=== PATIENT | female | born 1975 | race Two or more races ===

== ENCOUNTER 2016-09-18 07:18 | Day surgery (SDC) | payer OTHER ==
[2016-09-17 17:47] VITALS: BMI 37.0
[2016-09-18] MEDS ORDERED: MIDAZOLAM HCL 2 MG/2 ML SINGLE DOSE VIAL ONE (09:04)
[2016-09-18] MEDS ORDERED: ROCURONIUM BROMIDE 50 MG/5 ML VIAL ONE (09:04)
[2016-09-18] MEDS ORDERED: PROPOFOL 20 ML ONE (09:04)
--- NOTE | 2016-09-18 09:45 | HP ---
History & Physical Update - History History: No Change - Physical Physical: No Change - Assessment Assessment: No Change - Plan Plan: No Change
[2016-09-18] MEDS ORDERED: SUCCINYLCHOLINE CHLORIDE 200 MG/10 ML VIAL ONE (09:48)
[2016-09-18] MEDS ORDERED: ONDANSETRON 4 MG/2 ML VIAL ONE (09:58)
[2016-09-18] MEDS ORDERED: DEXAMETHASONE SOD PHOSPHATE 4 MG/1 ML VIAL ONE (09:58)
[2016-09-18] MEDS ORDERED: ACETAMINOPHEN INJECTION 100 ML IVPB ONE (11:38)
[2016-09-18] MEDS ORDERED: LIDOCAINE HCL 2% 100 MG/5 ML DISP.SYRIN ONE (13:05)
[2016-09-18] MEDS ORDERED: ONDANSETRON 4 MG/2 ML VIAL IVPUSH PRN ×2 (13:13→13:27)
[2016-09-18] MEDS ORDERED: PROMETHAZINE HCL 25 MG/1 ML VIAL IVPUSH PRN ×2 (13:13→13:27)
[2016-09-18] MEDS ORDERED: OXYCODONE/APAP 5/325MG COMBO TABLET PO PRN (13:15)
[2016-09-18] MEDS ORDERED: LACTATED RINGERS SOLUTION 1,000 ML IV SCH ×2 (13:15→13:27)
--- NOTE | 2016-09-18 13:21 | OP ---
Operative Note - Note: Operative Date: 09/18/16 Pre-Operative Diagnosis: Nodular tyhyroid goiter, right lobr. 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 Operation: Right thyroid lobectomy, Use of Nervana nerve monitor. ( Completion thyroidectomy). Findings: Large nodules in right lobe of thyroid, inferior pole. Post-Operative Diagnosis: Same as Pre-op Surgeon: Elmira Scruggs Anesthesiologist/BEND SORTER: Jordi Vargas Anesthesia: General Specimens Removed: Right lobe of thyroid. Estimated Blood Loss (mls): 25 Operative Report Dictated: Yes
[2016-09-18] MEDS ORDERED: ACETAMINOPHEN 325 MG TABLET (FP) PO PRN (14:06)
[2016-09-18] MEDS ORDERED: oxyCODONE HCL 5 MG TABLET PO PRN (14:06)
[2016-09-18] MEDS ORDERED: PROMETHAZINE HCL 25 MG/1 ML VIAL ONE (14:50)
[2016-09-19 06:01] VITALS: PULSE 78
[2016-09-19] MEDS ORDERED: LEVOTHYROXINE NA 75 MCG TABLET (FP) PO SCH (07:00)
[2016-09-19 10:34] VITALS: BP 141/78; TEMP 98.2
--- NOTE | 2016-09-19 11:55 | PN ---
Progress Note, Physician - Current Medication List Current Medications: Active Medications Acetaminophen (Tylenol -) 325 mg PO Q6H PRN PRN Reason: PAIN Last Admin: 09/18/16 18:17 Dose: 325 mg Lactated Ringer's (Lactated Ringers Solution) 1,000 mls @ 125 mls/hr IV ASDIR [facility] Last Admin: 09/18/16 15:45 Dose: 0 mls Levothyroxine Sodium (Synthroid -) 75 mcg PO DAILY@0700 [facility] Last Admin: 09/19/16 06:01 Dose: 75 mcg Oxycodone HCl (Roxicodone -) 5 mg PO Q6H PRN PRN Reason: PAIN Last Admin: 09/18/16 18:18 Dose: 5 mg - Objective Vital Signs: Vital Signs Temperature 98.2 F 09/19/16 08:10 Pulse Rate 78 09/19/16 08:10 Respiratory Rate 18 09/19/16 08:10 Blood Pressure 141/78 09/19/16 08:10 O2 Sat by Pulse Oximetry (%) 97 09/18/16 18:35 Assessment/Plan Patient has no complaints. Voice is normal. Drainage 30 ml. Will remove drain . Discharge home, follow up in the office.
--- NOTE | 2016-09-21 08:56 | OP ---
DATE OF OPERATION: 09/18/2016 PREOPERATIVE DIAGNOSIS: Nodular thyroid goiter in the right lobe of the thyroid with a history of carcinoma of the left lobe of the thyroid. POSTOPERATIVE DIAGNOSIS: Nodular thyroid goiter in the right lobe of the thyroid with a history of carcinoma of the left lobe of the thyroid. OPERATIVE PROCEDURE: Right thyroid lobectomy and use of Nirvana neuromonitoring device. SURGEON: Dillon Scruggs M.D. FOOD AND BEVERAGE CHECKER: Medical student ANESTHESIA: General anesthesia with the use of the Nirvana neuromonitoring device. ANESTHESIOLOGIST: Jordi Vargas M.D. OPERATIVE DESCRIPTION: This 41-year-old woman was brought in for a right thyroid lobectomy. She has an enlarged nodule in the right lobe of the thyroid. 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 Patient was followed subsequent to that. She has now developed a large nodule and it was brought in for completion thyroidectomy (right thyroid lobectomy). A Nirvana neuromonitoring device was used. The neck was positioned in extension, painted and draped. Timeout was called. An incision was made over the previous scar one fingerbreadth above the clavicle from one sternocleidomastoid to the other. It was deepened through skin and subcutaneous tissue and the platysma muscle. Superior and inferior skin flaps were then placed between the platysma and the deep cervical fascia superiorly up to the hyoid bone, inferiorly anterior to and below the clavicle on either side. Bleeding vessels were either cauterized or clipped, or cauterized with LigaSure or electrocautery. Strap muscles were then divided in the midline from the hyoid bone to the suprasternal notch. The strap muscles on the right side were then distracted to expose the right lobe of the thyroid gland, which was very large and had a large nodule on the inferior pole of the thyroid gland which was wrapped around the trachea, going behind the trachea into the prevertebral space. This was brought into the wound and exposed. Superior thyroid vessels were divided as close to the gland as possible between the hemoclips, Ligasure and the electrocautery. The inferior thyroid vessels were also divided as close to the gland as possible. Both parathyroid glands were identified and they were close to the Kaur ligament and the recurrent laryngeal nerve. This was carefully from the thyroid, sparing its blood supply. The right recurrent laryngeal nerve was identified and preserved with its function intact as demonstrated by stimulating the recurrent laryngeal nerve with the Nirvana neuromonitoring device. The Kaur ligament was then divided and the gland was mobilized medially. The isthmus of the thyroid gland was also excised and from the trachea and the thyroid cartilages. Both parathyroid glands were preserved intact. However, as they were close to each other and near the Kaur ligament, the procedure proceeded with careful deliberation. Hemostasis was satisfactory at the completion of procedure. A no. 8 drain was left in the wound and brought out through a stab wound on the right side of the neck. The pretracheal fascial fat was inspected. There were no enlarged lymph nodes in the central compartment or in the jugular chain, which was exposed with no enlarged lymph nodes. The wound was irrigated and hemostasis was satisfactory. Estimated blood loss was 25 mL. Strap muscles were approximated with interrupted [id number] 3-0 Vicryl sutures. The platysma was approximated with buried interrupted 3-0 Vicryl sutures. The skin was approximated with continuous 4 'O' Monocryl suture in a running subcuticular fashion. A small dressing was placed around the drain. The patient was extubated and sent to the recovery room in satisfactory and stable condition. Joslyn [id number] MTDD
--- NOTE | 2016-09-21 14:43 | PATH ---
Surgical Pathology Report Patient Name: BELKIS MARTIN [facility]. Rec. #: [id number] /Age/Gender: 1975 (Age: 41) / F Account: [id number] Location: AMBULATORY SURG Taken: 09/18/2016 Received: 09/18/2016 Reported: 09/21/2016 Physicians: Dillon Scruggs M.D. Specimen(s) Received RIGHT LOBE OF THYROID Clinical History Hx of papillary carcinoma (left lobe), now with thyroid nodule/mass in the right lobe Final Diagnosis THYROID GLAND, RIGHT LOBE, COMPLETION THYROIDECTOMY: PAPILLARY THYROID CARCINOMA, FOUR FOCI, LIMITED TO THYROID, CLASSICAL AND FOLLICULAR TYPES. TUMOR FOCI SIZE: 0.5 CM, 0.4 CM, 0.4 CM, AND 0.3 CM. SURGICAL RESECTION MARGINS: NEGATIVE FOR CARCINOMA: EXTRATHYROIDAL EXTENSIONS: NOT DEFINITIVELY IDENTIFIED. LYMPHOVASCULAR INVASION: NOT IDENTIFIED. PERINEURAL INVASION: NOT IDENTIFIED. SURROUNDING THYROID TISSUE: MULTINODULAR HYPERPLASIA. PATHOLOGIC STAGING: PRIMARY TUMOR: mpT1a LYMPH NODES: pNX Note: Prior history of papillary thyroid carcinoma (0.3 cm) in the left lobe () is noted. Considering the the multifocal nature of the tumor pathologic staging is mpT1a. Comments Thyroid carcinoma: Surgical Pathology Cancer Case Summary (Checklist) Based on AJCC/UICC TNM, 7th edition Procedure __x_ Completion thyroidectomy _x_ Right Specimen Integrity _x_ Intact Specimen Size Right lobe: 6.3 x4.5 x 1.5 cm Tumor Focality _x_ Multifocal (specify): _x_ Bilateral (also refer to prior specimen ). Dominant Tumor Tumor Laterality _x_ Right lobe Tumor Size Greatest dimension: 0.5 cm Histologic Type _x_ Papillary carcinoma Variant, specify: _x_ Classical (usual) Architecture: _x_ Classical (papillary) Cytomorphology: _x_ Classical Histologic Grade _x_ G1: Well differentiated Margins _x_ Margins uninvolved by carcinoma Tumor Capsule _x_ Partially encapsulated Tumor Capsular Invasion _x_ Present Lymph-Vascular Invasion _x_ Not identified Extrathyroidal Extension _x_ Not definitively identified Second Tumor Tumor Laterality _x_ Right lobe Tumor Size Greatest dimension: 0.4 cm Histologic Type _x_ Papillary carcinoma Variant, specify: _x_ Classical (usual) Architecture: _x_ Classical (papillary) Cytomorphology: _x_ Classical Histologic Grade _x_ G1: Well differentiated Margins _x_ Margins uninvolved by carcinoma Tumor Capsule _x_ None Tumor Capsular Invasion _x_ not applicable Lymph-Vascular Invasion _x_ Not identified Extrathyroidal Extension _x_ Not identified Third and Fourth Tumor Tumor Laterality _x_ Right lobe Tumor Size: Greatest dimension: 0.4 and 0.3 cm Histologic Type _x_ Papillary carcinoma Variant, specify: _x_ Follicular Architecture: _x_ Follicular Cytomorphology: _x_ Oncocytic and classical Histologic Grade _x_ G1: Well differentiated Margins _x_ Margins uninvolved by carcinoma Tumor Capsule _x_ None Tumor Capsular Invasion _x_ not applicable Lymph-Vascular Invasion _x_ Not identified Extrathyroidal Extension _x_ Not identified Pathologic Staging (pTNM): Primary tumor: mpT1a Regional lymph nodes: pNX Electronically Signed Casey Willoughby M.D. Gross Description Received fresh labeled "right lobe of thyroid" is a 20 g, 6.3 x 4.5 x 1.5 cm thyroid lobe. The outer capsule is red-brown with focal adhesions. Sectioning reveals a 0.3 cm in greatest dimension vale, firm lesion focally abutting the outer capsule. There are additional thyroid nodules present, measuring up to 1.3 cm in greatest dimension. The remaining thyroid parenchyma is red-brown and beefy. Also received within the same container are 2 vale soft tissue fragments measuring 0.5 and 1.2 cm in greatest dimension. Uniform Room Attendant sections are submitted in 10 cassettes as follows: 1-2-firm lesion; 8-8-[id number] thyroid nodules; 9-normal appearing thyroid parenchyma; 10-separately received soft tissue fragments. 09/18/2016 saudi09/18/2016
== END 2016-09-19 13:16 | disposition home or self-care (01) ==
LOC: JASUSAT 07:18 → J8W 15:50 → JASUSAT 09-19 13:16
PROVIDERS: ATTEND Specialist
PROC: 0GTK0ZZ Resection of Thyroid Gland, Open Approach (ICD-10-PCS; principal; 2016-09-18 09:30)
DX: E04.2 Nontoxic multinodular goiter (principal); Z85.850 Personal history of malignant neoplasm of thyroid
CPT/HCPCS: 36415; 82310; 84703; 88307-TC; 94760

== ENCOUNTER 2017-04-01 08:46 | Day surgery (SDC) | payer OTHER ==
[2017-03-16 17:21] VITALS: BMI 39.9
[2017-04-01] MEDS ORDERED: IBUPROFEN 800 MG/8 ML IJ IVPB PRN (09:02)
[2017-04-01] MEDS ORDERED: ACETAMINOPHEN 325 MG TABLET (FP) PO PRN (09:02)
--- NOTE | 2017-04-01 09:02 | HP ---
History & Physical Update - History History: No Change - Physical Physical: No Change - Assessment Assessment: No Change - Plan Plan: No Change (Pt here for AUB/submucous fibroid/polyp. For hysteroscopic resection.)
[2017-04-01] MEDS ORDERED: LACTATED RINGERS SOLUTION 1,000 ML IV SCH (09:15)
[2017-04-01] MEDS ORDERED: MIDAZOLAM HCL 2 MG/2 ML SINGLE DOSE VIAL ONE (10:01)
[2017-04-01] MEDS ORDERED: PROPOFOL 20 ML ONE (10:02)
[2017-04-01] MEDS ORDERED: ONDANSETRON 4 MG/2 ML VIAL IVPUSH PRN (10:04)
[2017-04-01] MEDS ORDERED: oxyCODONE HCL 5 MG TABLET PO PRN (10:04)
[2017-04-01] MEDS ORDERED: PROMETHAZINE HCL 25 MG/1 ML VIAL IVPUSH PRN (10:04)
--- NOTE | 2017-04-01 10:48 | OP ---
Operative Note - Note: Operative Date: 04/01/17 Pre-Operative Diagnosis: endomerial polyp Operation: hysteroscopy, polypectomy, suction D&C Findings: 2 fundal endometrial polyps noted Post-Operative Diagnosis: Same as Pre-op Surgeon: Millicent Chung Anesthesiologist/PERSONAL INJURY LEGAL ASSISTANT: Meenu Guerra MD Anesthesia: General (with LMA) Specimens Removed: endometrial currettings, endometrial polyp Estimated Blood Loss (mls): 10 Fluid Volume Replaced (mls): 500 Operative Report Dictated: Yes
[2017-04-01] MEDS ORDERED: ONDANSETRON 4 MG/2 ML VIAL ONE (11:24)
[2017-04-01 12:39] VITALS: TEMP 98
[2017-04-01 13:15] VITALS: BP 126/80; PULSE 64
--- NOTE | 2017-04-01 14:04 | OP ---
DATE OF OPERATION: 04/01/2017 PREOPERATIVE DIAGNOSIS: Endometrial polyp versus submucosal leiomyoma. POSTOPERATIVE DIAGNOSIS: Endometrial polyp. PROCEDURE: Hysteroscopy, dilatation and curettage, and polypectomy. SURGEON: Millicent Chung DO STEEL BOX TOE INSERTER: None. ANESTHESIA: LMA by Dr. Guerra ESTIMATED BLOOD LOSS: 10 mL. COMPLICATIONS: None. SPECIMEN: Included endometrial polyps and endometrial curettings. DISPOSITION: Stable to PACU. BRIEF HISTORY: Patient is a 42-year-old female who had been seen in the office with complaints of abdominal pain and heavy, painful periods. She had ultrasound examinations performed showing likely endometrial polyps and possible submucosal leiomyoma. Patient was counseled on her options, and she elevated to undergo a hysteroscopic resection of possible leiomyoma and polyps. The patient was admitted to [facility] in outpatient stay on April 01, 2017. DESCRIPTION OF PROCEDURE: She was given anesthesia by LMA and placed into the dorsal lithotomy position. A hard timeout was performed. A speculum was placed inside the vagina after she was adequately prepped and a tenaculum was placed on the cervix. A diagnostic hysteroscope was placed to the fundus. Bilateral tubal ostium were noted. Two endometrial polyps were noted at the fundus of the uterus. These were removed with polyp forceps at this time. Suction dilatation and curettage were then performed, and a final look with the hysteroscope revealed no evidence of uterine trauma. All instruments were removed from the vagina. Specimens were sent to Pathology for evaluation. Counts were reported to be correct. The patient was awaken from anesthesia and recovering in stable condition at the PACU at the time of this dictation. MILLICENT CHUNG DO /[id number]
--- NOTE | 2017-04-02 17:33 | PATH ---
Surgical Pathology Report Patient Name: BELKIS MARTIN [facility]. Rec. #: [id number] /Age/Gender: 1975 (Age: 42) / F Account: [id number] Location: [facility] SURGICAL Taken: 04/01/2017 Received: 04/01/2017 Reported: 04/02/2017 Physicians: Millicent Chung M.D. Specimen(s) Received A: ENDOMETRIAL POLYP B: ENDOMETRIAL CURETTINGS Clinical History Endometrial polyp Final Diagnosis A. ENDOMETRIUM, ENDOMETRIAL POLYP, DILATATION AND CURETTAGE: ENDOMETRIAL POLYP. B. ENDOMETRIAL CURETTINGS, DILATATION AND CURETTAGE: ENDOMETRIAL POLYP, PROLIFERATIVE ENDOMETRIUM AND BENIGN CERVICAL TISSUE. Electronically Signed Екатерина Lowe M.D. Gross Description A. Received in formalin labeled "endometrial polyp," are 3 pink-vale, irregular to polypoid portions of soft tissue ranging from 0.4 x 0.3 x 0.1 cm to 0.8 x 0.7 x 0.3 cm. The specimens are submitted in toto in one cassette. B. Received in formalin labeled "endometrial curettage" is a 2.4 x 1.9 x 0.3 cm aggregate of vale red soft tissue fragments. The formalin is filtered and the specimen is entirely submitted in one cassette. 04/01/201704/01/2017
== END 2017-04-01 14:18 | disposition home or self-care (01) ==
LOC: JASU-SURG 08:46
PROVIDERS: ATTEND Obstetrics & Gynecology
PROC: 0UB98ZX Excision of Uterus, Via Natural or Artificial Opening Endoscopic, Diagnostic (ICD-10-PCS; principal; 2017-04-01 10:00)
PROC: 0UDB8ZX Extraction of Endometrium, Via Natural or Artificial Opening Endoscopic, Diagnostic (ICD-10-PCS; 2017-04-01 10:00)
DX: N84.0 Polyp of corpus uteri (principal)
CPT/HCPCS: 36415; 84703; 86850; 86900; 86901; 88305-TC

== ENCOUNTER 2018-02-24 05:09 | Day surgery (SDC) | payer OTHER ==
[2018-02-21 15:43] VITALS: BMI 34.9
--- NOTE | 2018-02-24 12:18 | HP ---
History & Physical Update - History History: Change (see notes) (Pt also with h/o scoliosis and herniated disk, asthma.) Currently as noted:: Agree with H&P from 02/21 except as noted - Physical Physical: No Change - Assessment Assessment: No Change - Plan Plan: No Change Currently as noted:: Agree with H&P from 02/21, plan for HTA endometrial ablation for AUB.
[2018-02-24] MEDS ORDERED: LACTATED RINGERS SOLUTION 1,000 ML IV SCH (12:30)
[2018-02-24] MEDS ORDERED: MIDAZOLAM HCL 2 MG/2 ML SINGLE DOSE VIAL ONE (12:33)
[2018-02-24] MEDS ORDERED: PROPOFOL 20 ML ONE ×2 (12:33)
[2018-02-24] MEDS ORDERED: LIDOCAINE HCL/PF 2% SDV 5ML VIAL ONE (12:33)
[2018-02-24] MEDS ORDERED: KETOROLAC TROMETHAMINE 30 MG/1 ML VIAL ONE (12:53)
[2018-02-24] MEDS ORDERED: oxyCODONE HCL 5 MG TABLET PO PRN (13:36)
[2018-02-24] MEDS ORDERED: ONDANSETRON 4 MG/2 ML VIAL IVPUSH PRN (13:36)
--- NOTE | 2018-02-24 15:33 | OP ---
Operative Note - Note: Operative Date: 02/24/18 Pre-Operative Diagnosis: AUB Operation: HTA endometrial ablation Findings: small posterior intramural/submucosal fibroid Post-Operative Diagnosis: Same as Pre-op Surgeon: Millicent Chung Anesthesiologist/CREDIT RISK SPECIALIST: Clarice Grossman Anesthesia: General Specimens Removed: n/a Operative Report Dictated: Yes
[2018-02-24] MEDS ORDERED: oxyCODONE HCL 5 MG TABLET ONE (16:06)
[2018-02-24 16:59] VITALS: TEMP 98.2
[2018-02-24 19:17] VITALS: BP 120/79; PULSE 77
--- NOTE | 2018-02-26 11:54 | OP ---
DATE OF OPERATION: 02/24/2018 PREOPERATIVE DIAGNOSIS: Abnormal uterine bleeding with benign endometrial biopsy. POSTOPERATIVE DIAGNOSIS: Abnormal uterine bleeding with benign endometrial biopsy, with posterior noted uterine fibroid. PROCEDURE: HTA endometrial ablation. SURGEON: Millicent Chung MD ANESTHESIA: General by Dr. Clarice Grossman. COMPLICATIONS: None. ESTIMATED BLOOD LOSS: Minimal. SPECIMENS: None. DISPOSITION: Stable to PACU. COUNTS: Sponge and instrument counts correct at the end of the procedure. BRIEF HISTORY AND PROCEDURE: Patient is a 43-year-old female who had been seen in the office with complaints of heavy menstrual periods. Patient had been seen elsewhere for a workup and had an endometrial biopsy which showed benign pathology. We counseled on her options, and she elected to undergo a HTA endometrial ablation. The patient was brought to [facility] on February 24, 2018. Consents which had been signed in the office were reconfirmed. She was then taken back to the operating room, placed in the dorsal lithotomy position, and given general anesthesia. She was prepped and draped in the usual sterile fashion, and a hard time-out was performed. A tenaculum was placed on the cervix, and the operative hysteroscope was advanced into the uterus. Bilateral tubal ostia were seen. A small posterior uterine fibroid was appreciated at this time. Otherwise, no intracavitary lesions were appreciated. After obtaining an adequate cervical field by adding an extra tenaculum, the HTA endometrial ablation device was initiated, and ablation occurred without incident. After the procedure, adequate ablation of the entire endometrial cavity was appreciated with the diagnostic hysteroscope. All instruments were then removed from the uterine cavity. Minimal bleeding was noted from the cervical os, and tenaculum sites were noted to be hemostatic. Sponge and instrument counts were reported to be correct. The patient was awoken from anesthesia and recovering in stable condition in the PACU after the procedure. MILLICENT CHUNG DO /[id number]
== END 2018-02-24 18:00 | disposition home or self-care (01) ==
LOC: JASU-SURG 05:09
PROVIDERS: ATTEND Obstetrics & Gynecology
PROC: 0U5B8ZZ Destruction of Endometrium, Via Natural or Artificial Opening Endoscopic (ICD-10-PCS; principal; 2018-02-24 12:00)
DX: N93.9 Abnormal uterine and vaginal bleeding, unspecified (principal); D25.9 Leiomyoma of uterus, unspecified
CPT/HCPCS: 84703; 94760